=== PATIENT | male | born 1945 | race Caucasian/White ===

== ENCOUNTER 2016-07-09 20:14 | Emergency (ER) | payer BC ==
[~2016-07-09 20:14] MED LIST: ASAB PO; BACDS PO; BETAPACE80 PO; BYSTOLIC10 MG PO; CAT2 PO; CRESTOR5 MG PO; D100 PO; ELIQUIS 5 MG TAB5 MG PO; K-TABS10 MEQ PO; L40 PO; LOP25 PO; MICRO-K10 MEQ PO; NORCO1 TAB PO; NORV10 PO; PEP20 PO; PLAVIX PO; PRAV10 PO; VASOTEC10 PO; VASOTEC20 MG PO; VASOTEC5 PO; VITAMIN C100 MG; VITC500 PO; VITS
[2017-01-10] MEDS ORDERED: HALF81 PO (01:20)
[2017-01-10] MEDS ORDERED: NORV10 PO (01:20)
[2017-01-10] MEDS ORDERED: LOP25 PO (01:21)
[2017-01-10] MEDS ORDERED: L40 PO (01:21)
[2017-01-10] MEDS ORDERED: D100 PO (01:21)
[2017-01-10] MEDS ORDERED: CRESTOR5 MG PO (01:22)
[2017-01-10] MEDS ORDERED: BETAPACE80 PO (01:22)
[2017-01-10] MEDS ORDERED: PEP20 PO (01:23)
[2017-01-10] MEDS ORDERED: FOLIC ACID400 MC1 PO (01:23)
[2017-01-10] MEDS ORDERED: KDUR10 PO (01:23)
[2017-01-10] MEDS ORDERED: CYANO1000T PO (01:23)
== END 2016-07-09 23:06 | disposition home or self-care (01) ==
LOC: ER 20:14
PROC: 0YQQXZZ Repair Left 1st Toe, External Approach (ICD-10-PCS; principal; 2016-07-09)
DX: S91.112A Laceration without foreign body of left great toe without damage to nail, initial encounter (principal); B35.1 Tinea unguium; I12.9 Hypertensive chronic kidney disease with stage 1 through stage 4 chronic kidney disease, or unspecified chronic kidney disease; N18.9 Chronic kidney disease, unspecified; K21.9 Gastro-esophageal reflux disease without esophagitis; Z79.82 Long term (current) use of aspirin; Z79.899 Other long term (current) drug therapy; W18.40XA Slipping, tripping and stumbling without falling, unspecified, initial encounter
CPT/HCPCS: 73630-LT; 99284